=== PATIENT | male | born 1945 | race Caucasian/White ===

== ENCOUNTER 2018-04-19 12:07 | Inpatient (IN) | payer OTHER, BC ==
[~2018-04-19] VITALS: Ht 175.3 cm; Wt 96.8 kg
[2018-04-19 12:57] LABS: BASOPHIL (%) 0.7 % (0-1); BASOPHIL COUNT 0.1 K/uL (0-0.1); EOSINOPHIL (%) 2.5 % (0-5); EOSINOPHIL COUNT 0.2 K/uL (0-0.3); HEMATOCRIT 42.2 % (38.0-50.0); HEMOGLOBIN 14.3 G/DL (12.5-16.6); IMMATURE GRANULOCYTE (%) 1.5 % (0.0-0.7); LYMPHOCYTE (%) 13.3 % (15-42); LYMPHOCYTE COUNT 1.2 K/uL (1.0-2.8); MCH 28.7 PG (29.0-34.0); MCHC 33.9 G/DL (30.0-36.0); MCV 84.7 FL (86-99); MONOCYTE (%) 8.2 % (3-12); MONOCYTE COUNT 0.8 K/uL (0-0.8); NEUTROPHIL (%) 73.8 % (45-76); NEUTROPHIL COUNT 6.7 K/uL (1.8-6.4); PLATELET COUNT 200 K/uL (156-360); RBC DIS.WIDTH-CV 13.4 % (11.8-14.6); RBC DIS.WIDTH-SD 41.6 % (39-53); RED BLOOD COUNT 4.98 M/uL (4.00-5.50); WHITE BLOOD COUNT 9.1 K/uL (4.1-10.2)
[2018-04-19 13:03] LABS: INTER. NORMALIZED RATIO 1.1
[2018-04-19 13:05] LABS: PTT 29.3 SEC (25-37)
[2018-04-19 13:12] LABS: ALBUMIN 4.2 g/dL (3.2-4.8); CHLORIDE 104 mEq/L (99-109); POTASSIUM 4.5 mEq/L (3.7-5.4); SODIUM 140 mEq/L (136-147)
[2018-04-19 13:15] LABS: TOTAL PROTEIN 7.4 g/dL (6.4-8.3)
[2018-04-19 13:16] LABS: TOTAL BILIRUBIN 0.4 mg/dL (0.0-1.0)
[2018-04-19 13:18] LABS: ALKALINE PHOSPHATASE 69 IU/L (3-129); GFR ESTIMATE (CALCULATED) > 59 mL/min/ (58.99-99999); TROP-I INTERPRETATION POSITIVE
[2018-04-19 13:19] LABS: GLUCOSE 171 mg/dL (70-99); TROPONIN-I 4.73 ng/mL (0.0-0.30); UREA NITROGEN (BUN) 19 mg/dL (9-23)
[2018-04-19 13:20] LABS: AST (GOT) 38 IU/L (2-34); DIRECT BILIRUBIN 0.2 mg/dL (0.0-0.3)
[2018-04-19 13:21] LABS: ALT (GPT) 28 IU/L (3-49); LIPASE 22 U/L (1.0-51.0)
[2018-04-19] MEDS ORDERED: JANUVIA100 MG PO (13:57)
[2018-04-19] MEDS ORDERED: RELAFEN500 M1 PO (13:58)
[2018-04-19] MEDS ORDERED: ZYRTEC10 M3 PO (13:58)
[2018-04-19] MEDS ORDERED: LEXAPRO5 MG PO (13:58)
[2018-04-19] MEDS ORDERED: METFORMIN HCL500 MG PO (13:58)
[2018-04-19] MEDS ORDERED: GLIPIZIDE XL5 MG PO (13:58)
[2018-04-19] MEDS ORDERED: LISINOPRIL20 MG PO (13:58)
[2018-04-19] MEDS ORDERED: VITAMIN B-121000 MCG PO (13:59)
[2018-04-19 17:39] LABS: TROP-I INTERPRETATION POSITIVE
[2018-04-19 17:40] LABS: TROPONIN-I 4.68 ng/mL (0.0-0.30)
[2018-04-19 19:33] VITALS: BP 145/72
[2018-04-19 23:32] VITALS: BP 136/68
[2018-04-20 03:17] VITALS: BP 142/75
[2018-04-20 07:14] LABS: HEMATOCRIT 39.8 % (38.0-50.0); HEMOGLOBIN 13.2 G/DL (12.5-16.6); MCH 27.8 PG (29.0-34.0); MCHC 33.2 G/DL (30.0-36.0); MCV 83.8 FL (86-99); PLATELET COUNT 176 K/uL (156-360); RBC DIS.WIDTH-CV 13.4 % (11.8-14.6); RBC DIS.WIDTH-SD 41.1 % (39-53); RED BLOOD COUNT 4.75 M/uL (4.00-5.50); WHITE BLOOD COUNT 7.2 K/uL (4.1-10.2)
[2018-04-20 07:30] LABS: TROP-I INTERPRETATION POSITIVE; TROPONIN-I 4.17 ng/mL (0.0-0.30)
[2018-04-20 07:40] LABS: CHLORIDE 102 MEQ/L (99-109); CREATININE 0.9 MG/DL (0.6-1.3); GFR ESTIMATE (CALCULATED) > 59 mL/min/ (58.99-99999); GLUCOSE 149 mg/dL (70-99); HDL CHOLESTEROL 27 MG/DL (Desirable>=40); LDL CHOLESTEROL 101 mg/dL (Desirable<100); NON-HDL CHOLESTEROL 155 mg/dL (Desirable<160); POTASSIUM 4.2 MEQ/L (3.7-5.4); SODIUM 139 MEQ/L (136-147); TOTAL CHOLESTEROL 182 mg/dL (Desirable<200); TRIGLYCERIDES 270 MG/DL (Normal: <150); UREA NITROGEN (BUN) 18 mg/dL (9-23)
[2018-04-20 09:20] VITALS: BP 155/72
[2018-04-20 10:08] LABS: HEMOGLOBIN A1c (GLYCOHEMOGLOB) 6.4 % (Below 5.7)
[2018-04-20 11:11] VITALS: BP 126/65
[2018-04-20 16:30] VITALS: BP 110/66
[2018-04-20 19:45] VITALS: BP 110/57
[2018-04-21] VITALS (7 sets, daily range): BP systolic 108–140; BP diastolic 63–80
[2018-04-21 06:34] LABS: HEMATOCRIT 43.7 % (38.0-50.0); HEMOGLOBIN 14.5 G/DL (12.5-16.6); MCH 27.8 PG (29.0-34.0); MCHC 33.2 G/DL (30.0-36.0); MCV 83.9 FL (86-99); PLATELET COUNT 212 K/uL (156-360); RBC DIS.WIDTH-CV 13.4 % (11.8-14.6); RBC DIS.WIDTH-SD 40.9 % (39-53); RED BLOOD COUNT 5.21 M/uL (4.00-5.50); WHITE BLOOD COUNT 7.8 K/uL (4.1-10.2)
[2018-04-21 06:49] LABS: INTER. NORMALIZED RATIO 1.2
[2018-04-21 06:52] LABS: PTT 108.2 SEC (25-37)
[2018-04-21 06:58] LABS: TROP-I INTERPRETATION POSITIVE; TROPONIN-I 4.24 ng/mL (0.0-0.30)
[2018-04-21 08:00] LABS: ALBUMIN 4.2 G/DL (3.2-4.8); ALKALINE PHOSPHATASE 64 IU/L (3-129); ALT (GPT) 23 IU/L (3-49); AST (GOT) 22 IU/L (2-34); CHLORIDE 104 MEQ/L (99-109); GFR ESTIMATE (CALCULATED) > 59 mL/min/ (58.99-99999); GLUCOSE 138 mg/dL (70-99); MAGNESIUM 1.9 mg/dl (1.3-2.7); POTASSIUM 4.4 MEQ/L (3.7-5.4); SODIUM 140 MEQ/L (136-147); TOTAL BILIRUBIN 0.6 MG/DL (0.0-1.0); UREA NITROGEN (BUN) 19 mg/dL (9-23)
[2018-04-21 13:57] LABS: INTER. NORMALIZED RATIO 1.2
[2018-04-21 13:59] LABS: PTT 90.3 SEC (25-37)
[2018-04-22 04:56] VITALS: BP 135/84
[2018-04-22 05:28] LABS: HEMATOCRIT 38.7 % (38.0-50.0); MCH 28.3 PG (29.0-34.0); MCHC 33.6 G/DL (30.0-36.0); MCV 84.1 FL (86-99); PLATELET COUNT 202 K/uL (156-360); RBC DIS.WIDTH-CV 13.6 % (11.8-14.6); RBC DIS.WIDTH-SD 41.4 % (39-53); WHITE BLOOD COUNT 7.5 K/uL (4.1-10.2)
[2018-04-22 05:56] LABS: CHLORIDE 104 MEQ/L (99-109); CREATININE 0.9 MG/DL (0.6-1.3); GFR ESTIMATE (CALCULATED) > 59 mL/min/ (58.99-99999); GLUCOSE 144 mg/dL (70-99); MAGNESIUM 1.9 mg/dl (1.3-2.7); SODIUM 140 MEQ/L (136-147); UREA NITROGEN (BUN) 18 mg/dL (9-23)
[2018-04-22 05:57] LABS: TROPONIN-I 2.42 ng/mL (0.0-0.30)
[2018-04-22 05:58] LABS: TROP-I INTERPRETATION POSITIVE
[2018-04-22 07:56] VITALS: BP 124/70
[2018-04-22 14:11] VITALS: BP 132/66
[2018-04-22 20:16] VITALS: BP 144/70
[2018-04-22 23:59] VITALS: BP 131/72
[2018-04-23 04:13] VITALS: BP 138/75
[2018-04-23 05:24] LABS: BASOPHIL (%) 0.6 % (0-1); BASOPHIL COUNT 0.1 K/uL (0-0.1); EOSINOPHIL COUNT 0.2 K/uL (0-0.3); HEMOGLOBIN 12.6 G/DL (12.5-16.6); IMMATURE GRANULOCYTE (%) 0.6 % (0.0-0.7); LYMPHOCYTE (%) 14.9 % (15-42); LYMPHOCYTE COUNT 1.2 K/uL (1.0-2.8); MCH 27.8 PG (29.0-34.0); MCHC 33.2 G/DL (30.0-36.0); MCV 83.9 FL (86-99); MONOCYTE (%) 10.5 % (3-12); MONOCYTE COUNT 0.9 K/uL (0-0.8); NEUTROPHIL (%) 70.4 % (45-76); NEUTROPHIL COUNT 5.7 K/uL (1.8-6.4); PLATELET COUNT 205 K/uL (156-360); RBC DIS.WIDTH-CV 13.4 % (11.8-14.6); RBC DIS.WIDTH-SD 40.6 % (39-53); RED BLOOD COUNT 4.53 M/uL (4.00-5.50); WHITE BLOOD COUNT 8.1 K/uL (4.1-10.2)
[2018-04-23 05:46] LABS: CHLORIDE 105 MEQ/L (99-109); CREATININE 0.9 MG/DL (0.6-1.3); GFR ESTIMATE (CALCULATED) > 59 mL/min/ (58.99-99999); GLUCOSE 152 mg/dL (70-99); SODIUM 139 MEQ/L (136-147); UREA NITROGEN (BUN) 17 mg/dL (9-23)
[2018-04-23] MEDS ORDERED: CLOPIDOGREL75 MG PO (06:48)
[2018-04-23] MEDS ORDERED: ATORVASTATIN CA40 MG PO (06:49)
[2018-04-23] MEDS ORDERED: ASPIR-LOW81 MG PO (06:49)
[2018-04-23 09:00] VITALS: BP 123/74
== END 2018-04-23 09:50 | disposition home or self-care (01) | DRG 247 ==
LOC: EME 12:07 → 4EAST 14:31 → ENRESERV 14:31 → 4EAST 14:31 → EDOF 14:31 → ENRESERV 16:30 → 4EAST 19:27
PROVIDERS: Emergency Medicine; Family Medicine; Internal Medicine; Internal Medicine Cardiovascular Disease
PROC: 02703ZZ Dilation of Coronary Artery, One Artery, Percutaneous Approach (ICD-10-PCS; principal; 2018-04-22)
PROC: 027034Z Dilation of Coronary Artery, One Artery with Drug-eluting Intraluminal Device, Percutaneous Approach (ICD-10-PCS; principal; 2018-04-22)
PROC: B2151ZZ Fluoroscopy of Left Heart using Low Osmolar Contrast (ICD-10-PCS; principal; 2018-04-22)
PROC: B2111ZZ Fluoroscopy of Multiple Coronary Arteries using Low Osmolar Contrast (ICD-10-PCS; principal; 2018-04-22)
PROC: 4A023N7 Measurement of Cardiac Sampling and Pressure, Left Heart, Percutaneous Approach (ICD-10-PCS; principal; 2018-04-22)
DX: I21.4 Non-ST elevation (NSTEMI) myocardial infarction (principal); G47.33 Obstructive sleep apnea (adult) (pediatric); I10 Essential (primary) hypertension; E11.9 Type 2 diabetes mellitus without complications; I25.10 Atherosclerotic heart disease of native coronary artery without angina pectoris; E78.5 Hyperlipidemia, unspecified; F32.9 Major depressive disorder, single episode, unspecified; G91.9 Hydrocephalus, unspecified; M45.9 Ankylosing spondylitis of unspecified sites in spine; Z80.52 Family history of malignant neoplasm of bladder; Z82.49 Family history of ischemic heart disease and other diseases of the circulatory system; Z83.3 Family history of diabetes mellitus; Z79.84 Long term (current) use of oral hypoglycemic drugs; Z79.82 Long term (current) use of aspirin; Z79.899 Other long term (current) drug therapy; Z98.2 Presence of cerebrospinal fluid drainage device
CPT/HCPCS: 36415; 71045; 80048; 80053; 80061; 80076; 82948; 83036; 83690; 83735; 83880; 84484; 85025; 85027; 85610; 85730; 87081; 93005; 99281; 99285; C1725; C1769; C1874; C1887; J0583; J1644; J1815; J2250; J3010; J7030